=== PATIENT | male | born 1965 | race Hispanic/Latino ===

== ENCOUNTER → 2017-04-05 | Day surgery (SDC) | payer MEDICARE, OTHER ==
[~2017-04-05] MED LIST: Lactated Ringer's 1,000 ML IV ONE; Lactated Ringer's 500 ML IV SCH; Lidocaine Hydrochloride 5 ML INJ ONE; Propofol 10 mg/ml Inj (20 ML) ONE
--- NOTE | 2017-04-05 12:39 | CP.PCM.HP ---
History of Present Illness - History of Present Illness History of Present Illness: Jensen Connelly is a 52M w/ hx of HL and Vit D def who presents for colonscopy screening. Denies any nausea, vomiting, heartburn. indigestion, abd pain, diarrhea, constipation, melena and weightloss. No prior EGD or colonscopy. ROS: 12-point ROS conducted neg other than above PMHx: HL, Vit D def PSHx: none Family hx: Denies any hx of colon ca Soical hx: Denies smoking, etoh, illict drugs Present on Admission - Present on Admission Any Indicators Present on Admission: No Past Patient History - Past Medical History & Family History Past Medical History?: Yes - Past Social History Smoking Status: Never Smoked - CARDIAC Hx Cardiac Disorders: No - PULMONARY Hx Respiratory Disorders: No - NEUROLOGICAL Hx Neurological Disorder: Yes Other/Comment: INTELLECTUAL DISABILITY, AUTISM - HEENT Hx HEENT Problems: No - RENAL Hx Chronic Kidney Disease: No - ENDOCRINE/METABOLIC Hx Endocrine Disorders: No - HEMATOLOGICAL/ONCOLOGICAL Hx Blood Disorders: No - INTEGUMENTARY Hx Dermatological Problems: No - MUSCULOSKELETAL/RHEUMATOLOGICAL Hx Musculoskeletal Disorders: No - GASTROINTESTINAL Hx Gastrointestinal Disorders: No - GENITOURINARY/GYNECOLOGICAL Hx Genitourinary Disorders: No - PSYCHIATRIC Hx Psychophysiologic Disorder: No - SURGICAL HISTORY Hx Surgeries: No - ANESTHESIA Hx Anesthesia: No Meds Allergies/Adverse Reactions: Allergies Allergy/AdvReac Type Severity Reaction Status Date / Time oxcarbazepine Allergy ANAPHYLAXIS Verified 04/05/17 11:03 Physical Exam - Constitutional Appears: Well, Non-toxic, No Acute Distress - Head Exam Head Exam: ATRAUMATIC, NORMOCEPHALIC - Eye Exam Eye Exam: Normal appearance - ENT Exam ENT Exam: Mucous Membranes Moist - Respiratory Exam Respiratory Exam: Clear to Auscultation Bilateral, NORMAL BREATHING PATTERN. absent: Prolonged Expiratory Phase, Rales, Rhonchi, Wheezes - Cardiovascular Exam Cardiovascular Exam: REGULAR RHYTHM, +S1, +S2 - GI/Abdominal Exam GI & Abdominal Exam: Normal Bowel Sounds, Soft. absent: Distended, Firm, Guarding, Hernia, Hypoactive Bowel Sounds, Tenderness - Extremities Exam Extremities exam: Negative for: joint swelling, pedal edema - Neurological Exam Neurological exam: Alert - Psychiatric Exam Psychiatric exam: Normal Affect, Normal Mood - Skin Skin Exam: Dry, Normal Color, Warm Results - Vital Signs Recent Vital Signs: Last Vital Signs Temp 98.4 F 04/05/17 10:50 Pulse 80 04/05/17 10:50 Resp 20 04/05/17 10:50 BP 133/80 04/05/17 10:50 Pulse Ox Assessment & Plan - Assessment and Plan (Free Text) Assessment: Jensen Connelly is a 52M w/ hx of who presents for colorectal ca screening 1.colorectal colon screening Plan: -Suprep kit -dulcolax prior to prep -NPO after midnight -pt unable to give consent -consent to be provided by KRISTY Perez [phone] -Pt is of average risk for procedure D/W Dr. Arcos
[2017-04-05 13:05] VITALS: O2SAT 100
[2017-04-05 13:43] VITALS: TEMP 97.4
[2017-04-05 13:51] VITALS: BP 138/88; PULSE 85; RESP 15
== END | disposition home or self-care (01) ==
LOC: C.ENDO 10:20
PROVIDERS: ATTEND Internal Medicine Gastroenterology
DX: K64.8 Other hemorrhoids (principal)
CPT/HCPCS: 45378; J2704; J7120